=== PATIENT | male | born 1990 | race Caucasian/White ===

== ENCOUNTER 2021-07-20 20:18 | Inpatient (IN) | payer MEDICAID, SELFPAY ==
--- NOTE | ~2021-07-20 | CT_ITS ---
EXAMINATION: CT HEAD WITHOUT CONTRAST CLINICAL INFORMATION: Altered mental status. COMPARISON: None TECHNIQUE: Contiguous axial imaging was performed from the skull base to vertex without intravenous administration of contrast. Coronal and sagittal reformatted images were obtained. This CT examination was performed using dose optimization techniques as appropriate, variously including the following: *Automated exposure control *Adjustment of mA and/or kV according to patient size (this includes techniques or standardized protocols for targeted exams where dose is matched to indication/reason for exam; i.e. extremities or head) *Use of iterative reconstruction technique DLP: 766 mGy-cm FINDINGS: There is no evidence of acute intracranial hemorrhage or territorial infarction. No abnormal mass effect or midline shift is seen. Jara to white matter differentiation is well preserved. No extra-axial fluid collections are identified. The ventricles are normal in size. There is no abnormal attenuation within the brain parenchyma. The osseous structures and soft tissues are normal. The mastoid air cells and visualized portions of the paranasal sinuses are well aerated. CT/CT head/brain wo con IMPRESSION: No acute intracranial pathology.
--- NOTE | 2021-07-20 20:30 | ECG_ITS ---
Test Reason : PALPITATIONS Blood Pressure : / mmHG Vent. Rate : 112 BPM Atrial Rate : 112 BPM P-R Int : 130 ms QRS Dur : 088 ms QT Int : 360 ms P-R-T Axes : 059 055 032 degrees QTc Int : 491 ms Sinus tachycardia Otherwise normal ECG No previous ECGs available Referred By: Casimiro Lopez Electronically Signed By:Lázaro Romero
[2021-07-20 20:39] VITALS: BP 126/74; PULSE 128; RESP 26; TEMP 36.7; O2SAT 94; BMI 26.6
--- NOTE | 2021-07-20 20:41 | ED_ITS ---
HPI - Alcohol General Chief Complaint: ETOH/Substance Use Stated Complaint: anxiety & detoxing Time Seen by Provider: 07/20/21 20:19 Source: EMS Mode of arrival: EMS Limitations: other (Patient is altered) History of Present Illness HPI narrative: 22-year-old male history of alcohol abuse presents to the emergency department with acute alcohol withdrawal, last drink was this morning, patient reports he drinks about 2 L of vodka a day last drink was earlier this morning. Upon arrival patient extremely anxious, tremulous, diaphoretic, altered, very brief with question answering. According to EMS patient was seen at [facility] x2 today. He has a longstanding history of alcohol abuse and alcohol withdrawal with seizures. Denies tactile, visual and auditory hallucinations. Patient is unable to answer my review of systems, he tells me he feels confused and reporting nausea. Denies SI and HI MD complaint: alcohol intoxication, alcohol withdrawal and alcohol dependence Last drink: Hours (ago) (10) Amount of alcohol consumed: 2L of vodka/day Chronic alcohol use: Yes Previous visits for alcohol intoxication: No Recent trauma: No Associated symptoms: nausea, diaphoresis and tremors Treatments prior to arrival: none Related Data Allergies Allergy/AdvReac Type Severity Reaction Status Date / Time gluten Allergy Stomach Verified 07/20/21 20:57 Upset Review of Systems Review of Systems: Yes Unobtainable due to mental status PMFSH Past Medical History Attestation statement: The following information was validated with the patient. Source: old records reviewed and nursing notes reviewed Social History Social History Alcohol intake: current Advance Directives: No Advance Directives Information Provided: No Physical Exam ED Vital Signs: Vital Signs - 24 hr 07/20/21 20:39 07/20/21 20:52 07/20/21 21:28 Temperature 98.1 F Pulse Rate 128 H 117 H 111 H Respiratory Rate 26 H 17 17 Blood Pressure 126/74 119/57 L 114/63 Pulse Oximetry 94 94 94 Oxygen Delivery Method Room Air Room Air Room Air 07/20/21 22:03 Temperature Pulse Rate 109 H Respiratory Rate 15 Blood Pressure 115/64 Pulse Oximetry 95 Oxygen Delivery Method Room Air BMI result Body Mass Index 26.6 Patient is noted to be tachycardic, tachypneic upon arrival. Appearance: Alert.? Oriented X3.? Patient appears very uncomfortable, agitated, anxious, extremely diaphoretic. Head: Normocephalic, atraumatic, no step-offs or deformities Eyes: Pupils equal, round and reactive to light.?+ tongue fasciculations Neck: Normal inspection.? Neck supple.? CVS: Rapid rate, regular rhythm..? Pulses normal.? Respiratory: No respiratory distress.? Breath sounds normal.? Abdomen: Soft and nontender.? Skin: + skin warm and extremely diaphoretic.? Normal skin color.? Normal skin turgor.? Extremities: No lower extremity edema 5/5 strength to bilateral upper and lower extremities + patient with asterixis to bilateral upper extremities, tremors to upper and lower extremities both resting and with movement. Back: No midline tenderness, no C-spine tenderness, full range of motion, no CVA tenderness bilaterally Neuro: Oriented X 3.? No motor deficit.? No sensory deficit. CN 2-12 intact Course Reevaluation(s) Reevaluation #1: Patient's mother is at the bedside who tells me that recently patient started have lead drinking, unsure why. He was evaluated x2 at [facility] where he was discharged home 1 time in the other time patient decided to leave because they would not feed him or give him anything to drink. Patient's mom thinks that patient's last drink was this morning. She tells me that before his arrival to [facility] patient was extremely anxious, agitated and had a significant amount of nausea, vomiting. Again consistent with acute alcohol withdrawal. Patient with significant improvement after Ativan, head CT negative, patient is noted to have a slight leukocytosis likely secondary to reactivity/nausea/vomiting. Patient has an elevated anion gap of 30, likely secondary to ethanol patient's bilirubin and transaminases elevated however patient is not tender to palpation of abdomen. Patient's ethanol level 46, consistent with alcohol withdrawal. Patient is COVID negative. CIWA order has been put in for every 4 hours to monitor patient's symptoms and necessity for medication changes. At this time patient will be admitted to the hospitalist team for acute alcohol withdraw. Remains with seizure precautions. At this time vital signs are stable patient slightly tachycardic 110 at this time however diaphoresis, agitation, anxiety improved. Time: 22:18 MDM - Alcohol MDM Narrative Medical decision making narrative: 2030 30-year-old male presents with acute alcohol withdrawal, diaphoresis, nausea, cloudiness, poor historian at this time however tells me his last drink was this morning, tells me he drinks 2 L of vodka a day. Patient's physical examination significant for anxiety, agitation, significant diaphoresis, tremors upper and lower extremities, rapid regular rhythm likely sinus tachycardia, lungs clear, tongue fasciculations, abdomen soft nontender nondistended. Patient is alert to person, place time situation. Unable to sit still during my examination. Immediately upon patient's arrival to mg of IV Ativan were ordered, to IV peripheral lines were initiated, fluids were ordered and tongue, patient will be started on a phenobarbital protocol for severe alcohol withdrawal. He is on the channel opener outsoles and with seizure precautions Plan at this time is to obtain labs, urine, head CT when patient is much more calm Medical Records Attestation: I reviewed the patient's medical records. Lab Data Attestation: I reviewed the patient's lab results. Result diagrams: 07/20/21 20:45 07/20/21 20:45 Labs: Lab Results 07/20/21 07/20/21 07/20/21 Range/Units 20:45 20:45 20:45 WBC 11.6 H (4.8-10.8) X10*3/uL RBC 4.17 L (4.60-5.80) X10*6/uL Hgb 13.8 L (14.0-18.0) g/dl Hct 39.2 L (42.0-52.0) % MCV 94.0 (80.0-98.0) fL MCH 33.1 H (27.0-33.0) pg MCHC 35.2 (31.0-36.0) g/dl RDW 12.2 (11.0-16.0) % Plt Count 136 L (160-400) X10*3/uL MPV 10.2 (9.4-12.4) fL Immature Gran % (Auto) 0.3 (0.0-0.4) % Neut % (Auto) 80.5 H (45-73) % Lymph % (Auto) 15.3 L (20-40) % [place] % (Auto) 3.1 (2-11) % Eos % (Auto) 0.2 (0-4) % Baso % (Auto) 0.6 (0-2) % Lymph # (Auto) 1.8 (1.2-4.9) X10*3/uL [place] # (Auto) 0.4 (0.1-1.2) X10*3/uL Eos # (Auto) 0.0 (0.0-0.4) X10*3/uL Baso # (Auto) 0.1 (0.0-0.2) X10*3/uL Abs Immat Gran (auto) 0.04 H (0.00-0.03) X10*3/uL Absolute Neuts (auto) 9.3 H (2.0-8.3) x10*3/uL Absolute Nucleated RBC 0.000 (0.0-0.012) X10*3/uL Nucleated RBC % (auto) 0.0 (0.0-0.2) /100WBC Sodium 141 (135-145) mmol/L Potassium 3.6 (3.3-5.1) mmol/L Chloride 96 (96-108) mmol/L Carbon Dioxide 19 L (22-29) mmol/L Anion Gap 30 H (12-20) BUN 8 L (9-16) mg/dL Creatinine 0.77 (0.5-1.4) mg/dL Estim Creat Clear Calc 142.8 Estimated GFR > 60 Random Glucose 121 H (60-115) mg/dL Calcium 9.3 (8.4-10.2) mg/dL Magnesium 1.8 (1.6-2.6) mg/dL Total Bilirubin 1.2 H (0.0-1.0) mg/dL AST 115 H (5-37) U/L ALT 60 H (0-40) U/L Alkaline Phosphatase 98 (39-117) U/L Total Protein 8.1 H (6.5-8.0) g/dL Albumin 5.2 H (3.5-5.0) g/dL Ethyl Alcohol mg/dL COVID-19 (DHAVAL) Negative (Negative) COVID-19 Clin Com See Note 07/20/21 Range/Units 20:45 WBC (4.8-10.8) X10*3/uL RBC (4.60-5.80) X10*6/uL Hgb (14.0-18.0) g/dl Hct (42.0-52.0) % MCV (80.0-98.0) fL MCH (27.0-33.0) pg MCHC (31.0-36.0) g/dl RDW (11.0-16.0) % Plt Count (160-400) X10*3/uL MPV (9.4-12.4) fL Immature Gran % (Auto) (0.0-0.4) % Neut % (Auto) (45-73) % Lymph % (Auto) (20-40) % [place] % (Auto) (2-11) % Eos % (Auto) (0-4) % Baso % (Auto) (0-2) % Lymph # (Auto) (1.2-4.9) X10*3/uL [place] # (Auto) (0.1-1.2) X10*3/uL Eos # (Auto) (0.0-0.4) X10*3/uL Baso # (Auto) (0.0-0.2) X10*3/uL Abs Immat Gran (auto) (0.00-0.03) X10*3/uL Absolute Neuts (auto) (2.0-8.3) x10*3/uL Absolute Nucleated RBC (0.0-0.012) X10*3/uL Nucleated RBC % (auto) (0.0-0.2) /100WBC Sodium (135-145) mmol/L Potassium (3.3-5.1) mmol/L Chloride (96-108) mmol/L Carbon Dioxide (22-29) mmol/L Anion Gap (12-20) BUN (9-16) mg/dL Creatinine (0.5-1.4) mg/dL Estim Creat Clear Calc Estimated GFR Random Glucose (60-115) mg/dL Calcium (8.4-10.2) mg/dL Magnesium (1.6-2.6) mg/dL Total Bilirubin (0.0-1.0) mg/dL AST (5-37) U/L ALT (0-40) U/L Alkaline Phosphatase (39-117) U/L Total Protein (6.5-8.0) g/dL Albumin (3.5-5.0) g/dL Ethyl Alcohol 46 mg/dL COVID-19 (DHAVAL) (Negative) COVID-19 Clin Com Critical Care Time Critical Care Time Critical Care Time: No Discharge Plan Discharge Clinical Impression: Alcohol withdrawal syndrome Patient Disposition: Admitted As Inpatient
[2021-07-20] MEDS: LORazepam 2 MG/ML VIAL IVPUSH (20:44)
[2021-07-20 20:52] VITALS: BP 119/57; PULSE 117; RESP 17; O2SAT 94
[2021-07-20 20:53] LABS: MANUAL DIFF FLAG NO
[2021-07-20 20:54] LABS: Basophils Absolute Auto 0.1 X10*3/uL (0.0-0.2); Basophils Percent Auto 0.6 % (0-2); Eosinophils Percent Auto 0.2 % (0-4); Hematocrit 39.2 % (42.0-52.0); Hemoglobin 13.8 g/dl (14.0-18.0); Imm Gran Abs Auto 0.04 X10*3/uL (0.00-0.03); Imm Gran Pct Auto 0.3 % (0.0-0.4); Lymphocytes Absolute Auto 1.8 X10*3/uL (1.2-4.9); Lymphocytes Percent Auto 15.3 % (20-40); Mean Corpuscular HGB Conc 35.2 g/dl (31.0-36.0); Mean Corpuscular Hemoglobin 33.1 pg (27.0-33.0); Mean Platelet Volume 10.2 fL (9.4-12.4); Monocytes Absolute Auto 0.4 X10*3/uL (0.1-1.2); Monocytes Percent Auto 3.1 % (2-11); Neutrophils Absolute Auto 9.3 x10*3/uL (2.0-8.3); Neutrophils Percent Auto 80.5 % (45-73); Platelet Count 136 X10*3/uL (160-400); Red Blood Count 4.17 X10*6/uL (4.60-5.80); Red Cell Distribution Width 12.2 % (11.0-16.0); White Blood Count 11.6 X10*3/uL (4.8-10.8)
[2021-07-20] MEDS: 0.9 % Sodium Chloride 1,000 ML 999 ML IV ×2 (20:58→20:59)
[2021-07-20 21:06] LABS: Ethanol 46 mg/dL
[2021-07-20 21:13] LABS: Alanine Aminotransferase 60 U/L (0-40); Albumin Level 5.2 g/dL (3.5-5.0); Alkaline Phosphatase 98 U/L (39-117); Anion Gap 30 (12-20); Aspartate Amino Transferase 115 U/L (5-37); Bilirubin Total 1.2 mg/dL (0.0-1.0); Blood Urea Nitrogen 8 mg/dL (9-16); Calcium 9.3 mg/dL (8.4-10.2); Carbon Dioxide 19 mmol/L (22-29); Chloride 96 mmol/L (96-108); Creatinine Clr Calc Pharmacy 142.8; Estimated Glomerular Filt Rate > 60; Glucose Random 121 mg/dL (60-115); Magnesium 1.8 mg/dL (1.6-2.6); Potassium 3.6 mmol/L (3.3-5.1); Sodium 141 mmol/L (135-145); Total Protein 8.1 g/dL (6.5-8.0)
[2021-07-20 21:28] VITALS: BP 114/63; PULSE 111; RESP 17; O2SAT 94
[2021-07-20 21:28] LABS: COVID-19 Test Negative (Negative); IDNOW Serial# 16C4AD1C
[2021-07-20] MEDS: ondansetron HCL 4 MG/2 ML VIAL IVPUSH (21:30)
[2021-07-20 22:03] VITALS: BP 115/64; PULSE 109; RESP 15; O2SAT 95
--- NOTE | 2021-07-20 22:41 | PC.NURSE ---
Patient's partner updated on patient status via phone.
[2021-07-20 23:36] VITALS: BP 116/68; PULSE 110; RESP 18; O2SAT 96
[2021-07-20] MEDS: PHENobarbitaL 200 MG, PHENobarbitaL 60 MG 260 MG PO (23:37)
--- NOTE | 2021-07-20 23:42 | P.HPHOSP_ITS ---
History of Present Illness Date of Service: 07/20/21 Chief Complaint: alcohol withdrawal 30-year-old male with past medical history of depression anxiety, as well as alcohol abuse presents to the hospital with significant agitation and confusion brought in by his mother. Patient is very of tended after receiving multiple doses of Ativan as well as phenobarb therefore history is obtained from his mother who is a [place]- speaking only with the help of an outside sales account manager. According to the mother patient has been feeling very weak, has been drinking about 2 L of vodka daily, he has had nausea, vomiting, and shaking and therefore he was brought into the hospital. According to the mother he was seen at an outside hospital twice this morning and sent home. I am unable to obtain review of system from patient as he is obtunded. Vitals on arrival unremarkable except a slightly elevated heart rate of 128 othe rwise significant abnormal vitals. Labs noted to be significant for WBC count of 11.6. Has an elevated AST of 115, ALT of 60 Review of Systems Review of Systems: Yes all other systems are reviewed and are negative [facility] Medical History (Updated 07/21/21 @ 06:51 by Terese Lang MD) Alcohol abuse Anxiety and depression Family History (Updated 07/21/21 @ 06:52 by Terese Lang MD) Other No family history of coronary artery disease Surgical History (Updated 07/21/21 @ 06:51 by Terese Lang MD) No pertinent past surgical history Social History Alcohol intake: current Advance Directives: No Advance Directives Information Provided: No Meds Allergies Allergy/AdvReac Type Severity Reaction Status Date / Time gluten Allergy Stomach Verified 07/20/21 20:57 Upset Active Medications: Current Medications Pharmacy Consult (Consult Rx Etoh Phenob Po Dose) 1 each MISCELLANE ONCE PRN; Protocol PRN Reason: Consult order Phenobarbital 300 mg/ (Phenobarbital 30 mg) 330 mg PO ONCE@2100 [facility] Last Admin: 07/20/21 21:30 Dose: 330 mg Phenobarbital 200 mg/ (Phenobarbital 60 mg) 260 mg PO 0000,0300 [facility] Stop: 07/21/21 03:01 Last Admin: 07/20/21 23:37 Dose: 260 mg Phenobarbital (Phenobarbital 15 Mg Tablet) 45 mg PO BID [facility] Stop: 07/22/21 21:01 Phenobarbital (Phenobarbital 15 Mg Tablet) 15 mg PO BID [facility] Stop: 07/24/21 21:01 Phenobarbital (Phenobarbital 15 Mg Tablet) 15 mg PO DAILY [facility] Stop: 07/26/21 09:01 Physical Exam Vital Signs and Narrative: Vital Signs: Last Vital Signs Temp 98.1 F 07/20/21 20:39 Pulse 110 H 07/20/21 23:36 Resp 18 07/20/21 23:36 BP 116/68 07/20/21 23:36 Pulse Ox 96 07/20/21 23:36 O2 Del Method 07/20/21 23:36 BMI result Body Mass Index 26.6 Results Labs CBC and Chem 7: 07/21/21 04:02 07/21/21 04:02 Labs: Laboratory Results - last 24 hr 07/20/21 07/20/21 07/20/21 20:45 20:45 20:45 MCV 94.0 MCH 33.1 H MCHC 35.2 RDW 12.2 Plt Count 136 L MPV 10.2 Immature Gran % (Auto) 0.3 Neut % (Auto) 80.5 H Lymph % (Auto) 15.3 L [place] % (Auto) 3.1 Eos % (Auto) 0.2 Baso % (Auto) 0.6 Lymph # (Auto) 1.8 [place] # (Auto) 0.4 Eos # (Auto) 0.0 Baso # (Auto) 0.1 Abs Immat Gran (auto) 0.04 H Absolute Neuts (auto) 9.3 H Absolute Nucleated RBC 0.000 Nucleated RBC % (auto) 0.0 Anion Gap 30 H Estim Creat Clear Calc 142.8 Estimated GFR > 60 Random Glucose 121 H Calcium 9.3 Magnesium 1.8 Total Bilirubin 1.2 H AST 115 H ALT 60 H Alkaline Phosphatase 98 Total Protein 8.1 H Albumin 5.2 H Ethyl Alcohol COVID-19 (DHAVAL) Negative COVID-19 Clin Com See Note 07/20/21 20:45 MCV MCH MCHC RDW Plt Count MPV Immature Gran % (Auto) Neut % (Auto) Lymph % (Auto) [place] % (Auto) Eos % (Auto) Baso % (Auto) Lymph # (Auto) [place] # (Auto) Eos # (Auto) Baso # (Auto) Abs Immat Gran (auto) Absolute Neuts (auto) Absolute Nucleated RBC Nucleated RBC % (auto) Anion Gap Estim Creat Clear Calc Estimated GFR Random Glucose Calcium Magnesium Total Bilirubin AST ALT Alkaline Phosphatase Total Protein Albumin Ethyl Alcohol 46 COVID-19 (DHAVAL) COVID-19 Clin Com Imaging Radiologist's Impressions: Impressions Head CT 07/20/21 21:15 IMPRESSION: No acute intracranial pathology. Assessment and Plan (1) Alcohol withdrawal syndrome: Status: Acute Plan 30-year-old history of alcohol abuse presents to the hospital with acute alcohol withdrawal # acute alcohol withdrawal syndrome - patient started on phenobarb - will start him on thiamine and folic acid supplement - head CT was done for his agitation which was negative - monitor mental status # anxiety and depression - patient is not on any medications at home - monitor DVT prophylaxis: Lovenox Given their requirements for withdrawal monitoring patient will likely require 2 night hospital stay for alcohol withdrawals Quality Stroke Does the patient have a stroke diagnosis?: No VTE Prior VTE?: No VTE Risk Level:: Medical - moderate - high VTE Device Contraindication: Treatment Not Indicated VTE Drug Contraindication: N/A - Med Ordered
[2021-07-21] VITALS (7 sets, daily range): BP systolic 116–155; BP diastolic 66–98; PULSE 90–113; RESP 14–20; TEMP 36.6–37.4; O2SAT 97–100; BMI 26.6
[2021-07-21] MEDS: Enoxaparin Sodium 40 MG/0.4 ML SYRINGE SUBCUT ×2 (00:23→23:34)
[2021-07-21] MEDS: 0.9 % Sodium Chloride Flush 3 ML SYRINGE IVFLUSH ×2 (00:23→19:51)
[2021-07-21] MEDS: 0.9 % Sodium Chloride 1,000 ML 100 ML IVCONT ×2 (00:24→11:51)
[2021-07-21] MEDS: PHENobarbitaL 200 MG, PHENobarbitaL 60 MG 260 MG PO (03:11)
[2021-07-21 04:13] LABS: Eosinophils Percent Auto 0.1 % (0-4); Hemoglobin 12.4 g/dl (14.0-18.0); Imm Gran Abs Auto 0.02 X10*3/uL (0.00-0.03); Imm Gran Pct Auto 0.2 % (0.0-0.4); PLT CLUMP 1; SCAN SMEAR FLAG 1
[2021-07-21 04:15] LABS: Basophils Percent Auto 0.2 % (0-2); Hematocrit 35.6 % (42.0-52.0); Lymphocytes Absolute Auto 1.6 X10*3/uL (1.2-4.9); Lymphocytes Percent Auto 17.9 % (20-40); Mean Corpuscular HGB Conc 34.8 g/dl (31.0-36.0); Mean Corpuscular Hemoglobin 32.8 pg (27.0-33.0); Mean Corpuscular Volume 94.2 fL (80.0-98.0); Mean Platelet Volume 9.9 fL (9.4-12.4); Monocytes Absolute Auto 0.3 X10*3/uL (0.1-1.2); Monocytes Percent Auto 3.7 % (2-11); Neutrophils Percent Auto 77.9 % (45-73); Red Blood Count 3.78 X10*6/uL (4.60-5.80); Red Cell Distribution Width 12.3 % (11.0-16.0)
[2021-07-21 04:20] LABS: MANUAL DIFF FLAG NO; Platelet Count 104 X10*3/uL (160-400)
[2021-07-21 04:33] LABS: Anion Gap 15 (12-20); Blood Urea Nitrogen 7 mg/dL (9-16); Calcium 8.4 mg/dL (8.4-10.2); Carbon Dioxide 24 mmol/L (22-29); Chloride 100 mmol/L (96-108); Creatinine Clr Calc Pharmacy 174.5; Estimated Glomerular Filt Rate > 60; Glucose Random 91 mg/dL (60-115); Potassium 3.7 mmol/L (3.3-5.1); Sodium 135 mmol/L (135-145)
[2021-07-21] MEDS: Thiamine HCL 100 MG TABLET PO (08:05)
[2021-07-21] MEDS: PHENobarbitaL 15 MG TABLET 45 MG PO ×2 (08:05→19:51)
[2021-07-21] MEDS: Folic Acid 1 MG TABLET PO (08:05)
--- NOTE | 2021-07-21 09:25 | PHA.MEDREC ---
Pharmacy Consult ? Medication Reconciliation Pharmacy has completed the medication reconciliation. There are no remarkable issues for provider's attention. Patient reported all medications. Alessandra Lua, PharmD
--- NOTE | 2021-07-21 09:58 | MHC.CM.PN ---
PATIENT IS INDEPENDENT WITH ALL ADLS. HE IS CURRENTLY ASLEEP. CASE MANAGEMENT TO RETURN FOR ASSESSMENT PURPOSES AT A BETTER TIME. NO HCP ON FILE.
--- NOTE | 2021-07-21 11:54 | PC.NURSE ---
patient brought over from ed to overflow- report taken from lilly, patient a&ox3, pt has no c/o pain or discomfort, ivf running per order, call barnes within reach, dr reyes in to see pt- patient wanting to leave.
--- NOTE | 2021-07-21 16:56 | P.PNIM_ITS ---
Subjective Subjective Date of Service: 07/21/21 Interval History: Alcohol withdrawal Review of Systems patient is still tremulous and anxious Physical Exam Vital Signs: Vital Signs: Last Vital Signs Temp 99.1 F 07/21/21 16:34 Pulse 98 07/21/21 16:34 Resp 16 07/21/21 16:34 BP 155/98 H 07/21/21 12:10 Pulse Ox 99 07/21/21 16:34 O2 Del Method 07/21/21 16:34 BMI result Body Mass Index 26.6 Appearance: Alert.? Oriented X3.? not in distress.? Eyes: Pupils equal, round and reactive to light.? Sclera nonicteric.? ENT: Pharynx normal.? Moist mucous membranes. cvs: rrr, [id number] . res: clear to auscultation ,no rhonchii or wheezing abd: no rebound or guarding ,nt, bs present. ext pulses present , no cyanosis ,tramulous . neuro: axo3 , nonfocal. Objective Data Active Medications Acetaminophen (Acetaminophen 325 Mg Tablet) 650 mg PO Q6H PRN PRN Reason: Pain, Mild (Pain Scale 1-3) Docusate Sodium (Docusate Sodium 100 Mg Capsule) 100 mg PO DAILY PRN PRN Reason: Constipation Enoxaparin Sodium (Enoxaparin Sodium 40 Mg/0.4 Ml Syringe) 40 mg SUBCUT Q24H [facility] Last Admin: 07/21/21 00:23 Dose: 40 mg Documented By: NICA Folic Acid (Folic Acid 1 Mg Tablet) 1 mg PO DAILY [facility] Last Admin: 07/21/21 08:05 Dose: 1 mg Documented By: BEATRICEOPEMagali Sodium Chloride (Ns) 1,000 mls @ 100 mls/hr IVCONT .Q10H [facility] Last Admin: 07/21/21 11:51 Dose: 100 mls/hr Documented By: CARLOS Ondansetron HCl (Ondansetron Hcl 4 Mg/2 Ml Vial) 4 mg IVPUSH Q8H PRN PRN Reason: Nausea and Vomiting Pharmacy Consult (Consult Rx Etoh Phenob Po Dose) 1 each MISCELLANE ONCE PRN; Protocol PRN Reason: Consult order Phenobarbital 300 mg/ (Phenobarbital 30 mg) 330 mg PO ONCE@2100 [facility] Last Admin: 07/20/21 21:30 Dose: 330 mg Documented By: NICA Phenobarbital (Phenobarbital 15 Mg Tablet) 45 mg PO BID [facility] Stop: 07/22/21 21:01 Last Admin: 07/21/21 08:05 Dose: 45 mg Documented By: STONE Phenobarbital (Phenobarbital 15 Mg Tablet) 15 mg PO BID [facility] Stop: 07/24/21 21:01 Phenobarbital (Phenobarbital 15 Mg Tablet) 15 mg PO DAILY [facility] Stop: 07/26/21 09:01 Sodium Chloride (0.9 % Sodium Chloride Flush 3 Ml Syringe) 3 ml IVFLUSH QSHIFT [facility] Last Admin: 07/21/21 15:58 Dose: Not Given Documented By: CARLOS Non-Admin Reason: IV Running Thiamine HCl (Thiamine Hcl 100 Mg Tablet) 100 mg PO DAILY [facility] Last Admin: 07/21/21 08:05 Dose: 100 mg Documented By: STONE Labs CBC & Chem 7: 07/21/21 04:02 07/21/21 04:02 Labs: Laboratory Results - last 24 hr 07/20/21 07/20/21 07/20/21 20:45 20:45 20:45 MCV 94.0 MCH 33.1 H MCHC 35.2 RDW 12.2 Plt Count 136 L MPV 10.2 Immature Gran % (Auto) 0.3 Neut % (Auto) 80.5 H Lymph % (Auto) 15.3 L [place] % (Auto) 3.1 Eos % (Auto) 0.2 Baso % (Auto) 0.6 Lymph # (Auto) 1.8 [place] # (Auto) 0.4 Eos # (Auto) 0.0 Baso # (Auto) 0.1 Abs Immat Gran (auto) 0.04 H Absolute Neuts (auto) 9.3 H Absolute Nucleated RBC 0.000 Nucleated RBC % (auto) 0.0 Anion Gap 30 H Estim Creat Clear Calc 142.8 Estimated GFR > 60 Random Glucose 121 H Calcium 9.3 Magnesium 1.8 Total Bilirubin 1.2 H AST 115 H ALT 60 H Alkaline Phosphatase 98 Total Protein 8.1 H Albumin 5.2 H Ethyl Alcohol COVID-19 ([facility]AVAL) Negative COVID-19 Clin Com See Note 07/20/21 07/21/21 07/21/21 20:45 04:02 04:02 MCV 94.2 MCH 32.8 MCHC 34.8 RDW 12.3 Plt Count 104 L MPV 9.9 Immature Gran % (Auto) 0.2 Neut % (Auto) 77.9 H Lymph % (Auto) 17.9 L [place] % (Auto) 3.7 Eos % (Auto) 0.1 Baso % (Auto) 0.2 Lymph # (Auto) 1.6 [place] # (Auto) 0.3 Eos # (Auto) 0.0 Baso # (Auto) 0.0 Abs Immat Gran (auto) 0.02 Absolute Neuts (auto) 7.0 Absolute Nucleated RBC 0.000 Nucleated RBC % (auto) 0.0 Anion Gap 15 Estim Creat Clear Calc 174.5 Estimated GFR > 60 Random Glucose 91 Calcium 8.4 D Magnesium Total Bilirubin AST ALT Alkaline Phosphatase Total Protein Albumin Ethyl Alcohol 46 COVID-19 (DHAVAL) COVID-19 Clin Com Assessment and Plan (1) Alcohol withdrawal syndrome: Status: Acute Plan 30-year-old history of alcohol abuse presents to the hospital with acute alcohol withdrawal acute alcohol withdrawal syndrome - patient started on phenobarb - will start him on thiamine and folic acid supplement - head CT was done for his agitation which was negative - monitor mental status anxiety and depression - patient is not on any medications at home - monitor DVT prophylaxis: Lovenox inpatient needs : alcohol withdrawal Quality Stroke Does the patient have a stroke diagnosis?: No VTE Prior VTE?: No VTE Risk Level:: Medical - moderate - high VTE Device Contraindication: Treatment Not Indicated VTE Drug Contraindication: N/A - Med Ordered
[2021-07-22] VITALS: RESP 20
[2021-07-22 03:21] VITALS: BP 133/97; PULSE 100; RESP 18; TEMP 36.4; O2SAT 98
[2021-07-22 04:00] VITALS: RESP 18
[2021-07-22] MEDS: 0.9 % Sodium Chloride 1,000 ML 100 ML IVCONT (05:47)
[2021-07-22 07:20] VITALS: BP 140/100; PULSE 107; RESP 16; TEMP 36.9; O2SAT 98
[2021-07-22] MEDS: 0.9 % Sodium Chloride Flush 3 ML SYRINGE IVFLUSH (08:25)
[2021-07-22] MEDS: Thiamine HCL 100 MG TABLET PO (08:25)
[2021-07-22] MEDS: Folic Acid 1 MG TABLET PO (08:26)
[2021-07-22] MEDS: PHENobarbitaL 15 MG TABLET 45 MG PO (08:26)
--- NOTE | 2021-07-22 10:37 | P.DS_ITS ---
DS: Providers Provider Date of Service: 07/22/21 Date of admission: 07/20/21 23:40 Primary care physician: Unknown Physician Consults: 07/20/21 23:40 Consult to Care Team Routine Comment: Reason for consultation: alcohol abuse DS: Diagnosis Discharge Diagnosis (1) Alcohol withdrawal syndrome: Status: Acute DS: Summary Hospital Course Hospital Course: 30-year-old male with past medical history of depression anxiety, as well as alcohol abuse presents to the hospital with significant agitation and confusion brought in by his mother. Patient is very of tended after receiving multiple doses of Ativan as well as phenobarb therefore history is obtained from his mother who is a Frisian- speaking only with the help of an rn hemodialysis.? According to the mother patient has been feeling very weak, has been drinking about 2 L of vodka daily, he has had nausea, vomiting, and shaking and therefore he was brought into the hospital.? According to the mother he was seen at an outside hospital twice this morning and sent home.? I am unable to obtain review of system from patient as he is obtunded.? Vitals on arrival unremarkable except a slightly elevated heart rate of 128 otherwise significant abnormal vitals. Labs noted to be significant for WBC count of 11.6.? Has an elevated AST of 115, ALT of 60. hospital course: patient admitted with alcohol withdrawal-started on phenobarbital -seems imp roved , also has mild elevation of lft's possible related to alcohol use . moniter lft's outpatient . clonidine added for anxiety patient was strongly advised to abstein from alcohol. further management as per pcp. Above management discussed with the patient in detail length he understand and in agreement with the above plan, time spent 50 minutes and 50% time spent on counseling. Significant findings: As above. Procedures performed: None. Treatment and response: As above. Complications: None. Time Spent with Patient Time attestation: Total time spent providing and/or coordinating discharge services: Discharge coordination time: Greater than 30 minutes Quality: Safe Use of Opioids Does Pt have an Active Cancer Diagnosis on the Problem List?: No Quality: Stroke Does the patient have a stroke diagnosis?: No Physical Exam Vital Signs: Vital Signs: Last Vital Signs Temp 98.5 F 07/22/21 07:20 Pulse 107 H 07/22/21 07:20 Resp 16 07/22/21 07:20 BP 140/100 H 07/22/21 07:20 Pulse Ox 98 07/22/21 07:20 O2 Del Method 07/22/21 07:20 BMI result Body Mass Index 26.6 Appearance: Alert.? Oriented X3.? not in distress.? cvs: rrr, [id number] . res: clear to auscultation ,no rhonchii or wheezing abd: no rebound or guarding ,nt, bs present. ext pulses present , no cyanosis. neuro: axo3 , nonfoca DS: Data Additional Comments Additional comments: 07/20/21 07/20/21 07/20/21 ? 20:45 20:45 20:45 MCV ?94.0 ? ? MCH ?33.1 H ? ? MCHC ?35.2 ? ? RDW ?12.2 ? ? Plt Count ?136 L ? ? MPV ?10.2 ? ? Immature Gran % (Auto) ?0.3 ? ? Neut % (Auto) ?80.5 H ? ? Lymph % (Auto) ?15.3 L ? ? Bollinger % (Auto) ?3.1 ? ? Eos % (Auto) ?0.2 ? ? Baso % (Auto) ?0.6 ? ? Lymph # (Auto) ?1.8 ? ? Bollinger # (Auto) ?0.4 ? ? Eos # (Auto) ?0.0 ? ? Baso # (Auto) ?0.1 ? ? Abs Immat Gran (auto) ?0.04 H ? ? Absolute Neuts (auto) ?9.3 H ? ? Absolute Nucleated RBC ?0.000 ? ? Nucleated RBC % (auto) ?0.0 ? ? Anion Gap ? ?30 H ? Estim Creat Clear Calc ? ?142.8 ? Estimated GFR ? ?> 60 ? Random Glucose ? ?121 H ? Calcium ? ?9.3 ? Magnesium ? ?1.8 ? Total Bilirubin ? ?1.2 H ? AST ? ?115 H ? ALT ? ?60 H ? Alkaline Phosphatase ? ?98 ? Total Protein ? ?8.1 H ? Albumin ? ?5.2 H ? Ethyl Alcohol ? ? ? COVID-19 ([facility]) ? ? ?Negative COVID-19 Clin Com ? ? ?See Note ? 07/20/21 ?B 20:45 MCV ? MCH ? MCHC ? RDW ? Plt Count ? MPV ? Immature Gran % (Auto) ? Neut % (Auto) ? Lymph % (Auto) ? Bollinger % (Auto) ? Eos % (Auto) ? Baso % (Auto) ? Lymph # (Auto) ? Bollinger # (Auto) ? D Eos # (Auto) ? Baso # (Auto) ? Abs Immat Gran (auto) ? Absolute Neuts (auto) ? Absolute Nucleated RBC ? Nucleated RBC % (auto) ? Anion Gap ? Estim Creat Clear Calc ? Estimated GFR ? Random Glucose ? Calcium ? Magnesium ? Total Bilirubin ? AST ? ALT ? Alkaline Phosphatase ? Total Protein ? D Albumin ? Ethyl Alcohol ?46 COVID-19 ([facility]) ? COVID-19 Clin Com ? Imaging Radiologist's Impressions: Impressions Head CT? 07/20/21 21:15 IMPRESSION: No acute intracranial pathology. Discharge Plan Discharge Patient Disposition: Home, Self-Care Discharge Diagnosis: alcohol withdrawal Referrals: Physician,Zeus J [Primary Care Provider] - 1 Week Discharge Medications: New folic acid 1 mg Tablet 1 mg PO DAILY Qty: 30 0RF thiamine mononitrate (vit B1) 100 mg Tablet 100 mg PO DAILY Qty: 30 0RF clonidine HCl 0.1 mg tablet 0.1 mg PO BID PRN (Reason: alcohol withdrawal) Qty: 14 0RF Continued methylphenidate HCl 10 mg tablet 5 mg PO DAILY PRN (Reason: ADD) methylphenidate HCl 10 mg tablet 10 mg PO DAILY naltrexone 50 mg tablet 1 tab PO DAILY duloxetine 60 mg capsule,delayed release(DR/EC) 1 cap PO DAILY Vyvanse 60 mg capsule 1 cap PO QAM Descovy 200-25 mg tablet 1 tab PO DAILY Discharge Orders: Discharge Order (Routine); Ordered 07/22/21 Ordered By: Storm Diane Diet: advance to usual diet and low salt diet Activity on Discharge: As tolerated Stand Alone Forms: Patient Portal Discharge page, Work/School Release Care Plan Goals: patient admitted with alcohol withdrawal-started on phenobarbital -seems improved , also has mild elevation of lft's possible related to alcohol use . moniter lft's outpatient . clonidine added for anxiety patient was strongly advised to abstein from alcohol. further management as per pcp. Health Concerns: as above. patient was strongly advised to abstein from alcohol. moniter lft's outpatient with pcp. Plan of Treatment: as above. Assessment: as above. Patient Instructions: Alcohol Withdrawal (DC)
--- NOTE | 2021-07-22 11:46 | MHC.CM.PN ---
Plan dc home today. Met with patient, he is agreeable with plan. 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 Family to drive home. Reports he is in AA program and has a sponsor who he is in contact with and pans to attend meetings and continue to work on sobriety after discharge.
--- NOTE | 2021-07-22 13:10 | MHC.RECOVRN ---
Attempted to meet with pt, however, pt had d/c.
== END 2021-07-22 12:18 | disposition home or self-care (01) | DRG 775 ==
LOC: HO.ED 22:20 → HO.EDOVER 23:46 → HO.S3 07-21 16:44
PROVIDERS: Physician Assistant; Admitting Provider Internal Medicine; Emergency Provider Internal Medicine; PCP Internal Medicine; Visit Provider Internal Medicine
DX: F10.139 Alcohol abuse with withdrawal, unspecified (principal); F32.A Depression, unspecified; F41.9 Anxiety disorder, unspecified; Y90.2 Blood alcohol level of 40-59 mg/100 ml; Z20.822 Contact with and (suspected) exposure to COVID-19; Z79.899 Other long term (current) drug therapy
CPT/HCPCS: 36415; 70450; 80048; 80053; 82077; 83735; 85025; 87635; 93005; 96361; 96374; 96375; 99285; J1650; J2060; J2405